=== PATIENT | female | born 1945 | race Caucasian/White ===

== ENCOUNTER → 2018-04-15 | Day surgery (SDC) | payer OTHER, MEDICARE ==
[2018-04-13 14:33] LABS: BASOPHILS % 0.6 % (0.0-1.0); EOSINOPHILS # (AUTO) 0.6 (0.0-0.4); EOSINOPHILS % 8.7 % (0.0-6.0); HEMOGLOBIN 12.7 g/dL (12.0-16.0); LYMPHOCYTES # (AUTO) 2.1 (1.0-3.2); LYMPHOCYTES % 30.5 % (18.0-39.1); MEAN CORPUSCULAR HEMOGLOBIN 32.8 pg (28-32); MEAN CORPUSCULAR HGB CONC 32.6 g/dL (31-35); MEAN CORPUSCULAR VOLUME 100.8 fL (81-99); MONOCYTES # (AUTO) 0.7 (0.2-0.8); MONOCYTES % 9.9 % (4.4-11.3); NEUTROPHILS # (AUTO) 3.4 (2.1-6.9); PLATELET COUNT 211 x10e3/uL (140-360); RED BLOOD COUNT 3.87 x10e6/uL (3.6-5.1); RED CELL DISTRIBUTION WIDTH 12.4 % (11.7-14.4)
[~2018-04-15] MED LIST: ATIVAN1 MG PO; ATORVASTATIN CA20 MG PO; CRESTOR10 MG PO; DICYCLOMINE HCL20 MG PO; DILTIAZEM 24HR120 M1 PO; Eliquis PO; FENTANYL CITRATE/PF 100MCG/2 ML INJ ONE; GABAPENTIN100 MG PO; LYRICA50 MG PO; MIDAZOLAM HCL 2 MG/2 ML VIAL ONE; MINOCYCLINE HCL50 MG PO; PANTOPRAZOLE SO40 MG PO; PROPOFOL IV EMULSION 10 MG/ML 20 ML VIAL ONE; TOPROL XL50 MG PO; TRIAMTERENE-HCTZ1 EA PO; ULTRAM 50MG50 MG PO; VALIUM2 MG PO; XARELTO20 MG PO; ZETIA10 MG PO; ZOLOFT50 MG PO
--- OUTSIDE RECORDS SUMMARY | 2018-04-15 06:36 | XMS REPORT ---
[facility] Address Unknown Phone Unavailable Care Team Providers Care Sonography Technologist Name Role Phone Unavailable Unavailable Payers Payer Name Policy Type Policy Number Effective Date Expiration Date Problems This patient has no known problems. Allergies, Adverse Reactions, Alerts Allergy Name Allergy Type Status Severity Reaction(s) Onset Date Inactive Date Treating Clinician Comments Sulfa (Sulfonamide Antibiotics) DA Active 2018-03-12 00:00:00 lisinopril DA Active SV 2018-03-12 00:00:00 codeine DA Active SV 2018-03-12 00:00:00 ciprofloxacin DA Active SV 2018-03-12 00:00:00 oxybutynin DA Active SV 2018-03-12 00:00:00 ELOQUIS DA Active SV 2018-03-12 00:00:00 Sulfa (Sulfonamide Antibiotics) DA Active U 2016-09-29 00:00:00 lisinopril DA Active U 2016-09-29 00:00:00 codeine DA Active U 2016-09-29 00:00:00 ciprofloxacin DA Active U 2016-09-29 00:00:00 ELOQUIS DA Active U 2016-09-29 00:00:00 Medications This patient has no known medications.
[2018-04-15 09:35] VITALS: BP 140/83
--- NOTE | 2018-04-15 12:23 | Operative Report ---
DATE OF PROCEDURE: April 15, 2018 PROCEDURE PERFORMED: Colonoscopy. PREOPERATIVE DIAGNOSIS: Hematochezia. POSTOPERATIVE DIAGNOSIS: Hematochezia, etiology unfounded. PREOPERATIVE MEDICATIONS: General anesthesia. DESCRIPTION OF PROCEDURE: Using the [employer] video colonoscope, it was inserted without difficulty to the level of the cecum. The colon was studied from that level back down to the rectum. Extensive amount of stool was present from the transverse colon through the cecum. We were able to wash some of this away and see the colon lining, which appeared to be normal. As we withdrew the colonoscope from the cecum back down to the rectum, no polypoid lesions, tumor masses or inflammatory changes were encountered. The colonoscope was withdrawn from the patient's rectum, and the procedure was ended. In conclusion, we have findings of an essentially normal colon. Etiology of the hematochezia is unfounded at this time. Job#: [id number]
== END | disposition home or self-care (01) ==
LOC: OR 06:33
PROVIDERS: ATTEND Internal Medicine Gastroenterology
DX: K92.1 Melena (principal); I10 Essential (primary) hypertension; E78.5 Hyperlipidemia, unspecified; K21.9 Gastro-esophageal reflux disease without esophagitis; K58.9 Irritable bowel syndrome, unspecified; G47.33 Obstructive sleep apnea (adult) (pediatric); Z01.810 Encounter for preprocedural cardiovascular examination; Z01.812 Encounter for preprocedural laboratory examination; I83.90 Asymptomatic varicose veins of unspecified lower extremity; Z86.73 Personal history of transient ischemic attack (TIA), and cerebral infarction without residual deficits; Z79.02 Long term (current) use of antithrombotics/antiplatelets; Z95.0 Presence of cardiac pacemaker; Z87.440 Personal history of urinary (tract) infections; Z88.1 Allergy status to other antibiotic agents; Z88.5 Allergy status to narcotic agent; Z88.8 Allergy status to other drugs, medicaments and biological substances
CPT/HCPCS: 36415; 45378; 85025; 93005; J2250; J2704